=== PATIENT | male | born 1985 | race Caucasian/White ===

== ENCOUNTER 2021-11-23 20:22 | Emergency (ER) | payer MEDICAID ==
[~2021-11-23] VITALS: Ht 160 cm; Wt 55.0 kg
[2021-11-23 20:57] VITALS: BP 143/90
== END 2021-11-24 05:52 | disposition left against medical advice (07) ==
LOC: ER 20:22
DX: Z53.21 Procedure and treatment not carried out due to patient leaving prior to being seen by health care provider (principal)